=== PATIENT | female | born 1940 | race Caucasian/White ===

== ENCOUNTER 2016-08-05 05:23 | Inpatient (IN) | payer MEDICARE, OTHER ==
--- NOTE | 2016-07-27 11:21 | HISTORY & PHYSICAL EXAMINATION ---
DATE OF ADMISSION: 08/05/2016 CHIEF COMPLAINT: Pelvic pressure, a mass protruding from the vagina on coughing or sneezing. HISTORY OF PRESENT ILLNESS: The patient is a 76-year-old 2, para 2. General health is complicated by arthritis and back pain. 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 She did well postoperatively to a little over a year ago when she began to notice pressure on coughing or sneezing and then eventually she started to have a mass protruding from her vagina when she would cough, sneeze or strain. She had been followed in the office for several months. It got progressively worse. We placed her on estrogen vaginal cream several months ago and she is presently being admitted for an anterior and posterior colporrhaphy along with an insertion of a suprapubic Cysto-Cath. PAST MEDICAL HISTORY: She has 2 children in good health. ALLERGIES: No known drug allergies. SURGICAL HISTORY: [id number] she had a KIMBERLEY-BSO. She had wisdom teeth removed. She had surgery on her left wrist about a year ago. SOCIAL HISTORY: No smoking. No excessive alcohol intake. She is retired. FAMILY HISTORY: Mother at age 52 in childbirth. Father at age 57 of uncertain etiology. No brothers or sisters. REVIEW OF SYSTEMS: She does have problems with headaches. She says that they are not migraine headaches. PHYSICAL EXAMINATION: GENERAL: Well-developed, well-nourished 76-year-old white female, alert, oriented x3, cooperative, in no acute distress, appears her stated age. EYES: Conjunctivae are pink, sclerae white, no evidence of jaundice. EARS: Have normal light reflex bilaterally. NOSE: Has normal mucosa. Septum is midline. There are no polyps. THROAT: No erythema or evidence of infection. Teeth are in good state of repair. HEAD: Normocephalic, normal distribution of hair. NECK: Supple. Trachea midline. Thyroid is not enlarged. There is no adenopathy appreciated. Both carotids are of good intensity. CHEST: Clear to auscultation and percussion. No wheezes, rales or rhonchi appreciated. HEART: Regular rhythm. S1 and S2 are normal. BREASTS: Normal. ABDOMEN: Reveals a well-healed Pfannenstiel incision. PELVIC: Reveals a second-degree cystocele along with a second-degree rectocele which prolapses through the vagina on coughing or sneezing. MUSCULOSKELETAL: Reveals no calf tenderness. IMPRESSIONS OF THIS CASE: Status post removal of wisdom teeth. Status post left wrist surgery. Status post total abdominal hysterectomy and bilateral salpingo-oophorectomy. Symptomatic rectocele and cystocele. MTDD
--- NOTE | 2016-07-27 11:30 | PAT Medication Instructions ---
Service Date Jul 27, 2016. Current Home Medication List Amoxicillin & Pot Clavulanate (Augmentin 875-125 mg), 1 TAB PO BID Ascorbic Acid (Vitamin C), 1 TAB PO DAILY Atorvastatin (Lipitor), 10 MG PO QAM Calcium Carbonate-Cholecalcife (Caltrate 600+D), 1 TAB PO QAM Cholecalciferol (Vitamin D3), 1 TAB PO DAILY Cyanocobalamin (Vitamin B12 500MCG), 500 MCG PO QAM Diclofenac Sodium (Topical) (Voltaren 1% Top Gel), 1 DOSE TOP UD Estrogens, Conjugated (Premarin), 1 DOSE TOP UD Ssoawavxzxx-Yspkipbgioa-Ypytbw (Glucosamine Chondroitin M), 1 TAB PO QAM Multiple Vitamins W/ Minerals (Centrum Silver Adult 50+), 1 TAB PO QAM Multiple Vitamins W/ Minerals (Preservision Areds 2), 1 TAB PO QAM Probiotic Product (Probiotic), 1 TAB PO QAM Psyllium (Metamucil Fiber), 1 DOSE PO UD Medication Instructions For Your Scheduled Surgery - Hold the following medications as of 07/27/16: Uzfxgxpbgwj-Tpptjtqolby-Aiurzq (Glucosamine Chondroitin M), 1 TAB PO QAM - Hold the following medications the morning of surgery: Ascorbic Acid (Vitamin C), 1 TAB PO DAILY Calcium Carbonate-Cholecalcife (Caltrate 600+D), 1 TAB PO QAM Cholecalciferol (Vitamin D3), 1 TAB PO DAILY Cyanocobalamin (Vitamin B12 500MCG), 500 MCG PO QAM Diclofenac Sodium (Topical) (Voltaren 1% Top Gel), 1 DOSE TOP UD Estrogens, Conjugated (Premarin), 1 DOSE TOP UD Multiple Vitamins W/ Minerals (Centrum Silver Adult 50+), 1 TAB PO QAM Multiple Vitamins W/ Minerals (Preservision Areds 2), 1 TAB PO QAM Probiotic Product (Probiotic), 1 TAB PO QAM Psyllium (Metamucil Fiber), 1 DOSE PO UD - Take the following medications the morning of surgery with a sip of water OTHERWISE NOTHING TO EAT OR DRINK AFTER MIDNIGHT: Amoxicillin & Pot Clavulanate (Augmentin 875-125 mg), 1 TAB PO BID Atorvastatin (Lipitor), 10 MG PO QAM - Take the following medications as scheduled the night before surgery: Amoxicillin & Pot Clavulanate (Augmentin 875-125 mg), 1 TAB PO BID If you have any questions please call us at [phone] or [phone] or [phone]
[2016-07-27 11:46] LABS: BASO % 0.2 %; BASO ABS # 0.01 K/uL (0-0.2); COMPLETE YES; EOS % 0.9 %; HEMATOCRIT 40.4 % (37-47); LYMPH % 10.8 %; LYMPH ABS # 0.48 K/uL (1.2-3.4); MEAN CELL VOLUME 86.3 fL (80-100); MEAN CORPUSCULAR HEMOGLOBIN 28.8 pg (25-34); MEAN CORPUSCULAR HGB CONC 33.4 g/dl (32-36); MEAN PLATELET VOLUME 10.3 fL (7.4-10.4); MONO % 11.9 %; NEUT % 76.2 %; PLATELET COUNT 187 K/uL (130-400); RED BLOOD COUNT 4.68 M/uL (4.2-5.4); WHITE BLOOD COUNT 4.46 K/uL (4.8-10.8)
[2016-07-27 12:03] LABS: INR 1.1 (0.9-1.1); PROTHROMBIN TIME (PATIENT) 11.3 SECONDS (9.0-12.0)
[2016-07-27 12:12] LABS: BLOOD UREA NITROGEN 7 mg/dl (7-18); BUN/CREATININE RATIO 11.5 (10-20); CALCIUM 8.9 mg/dl (8.5-10.1); CARBON DIOXIDE 29 mmol/L (21-32); CHLORIDE 102 mmol/L (98-107); CREATININE 0.62 mg/dl (0.60-1.20); GLUCOSE 120 mg/dl (70-99); POTASSIUM 3.6 mmol/L (3.5-5.1); SODIUM 139 mmol/L (136-145)
--- NOTE | 2016-07-27 12:28 | DIAGNOSTIC IMAGING REPORT ---
CHEST PREADMISSION(PA/LAT) CLINICAL HISTORY: Preoperative chest COMPARISON STUDY: No previous studies for comparison. FINDINGS: The heart is mildly enlarged. There is no failure. There is no focal pulmonary consolidation. There are no pleural effusions. There is minor right basilar atelectasis. There are old right-sided rib deformities.[ IMPRESSION: No active disease in the chest. Electronically signed by: Pepe Schneider M.D. 07/27/2016 12:27 PM Dictated Date/Time: 07/27/2016 12:27 PM
[2016-07-27 16:24] VITALS: BMI 23.0
[2016-08-05] VITALS (9 sets, daily range): BP systolic 110–137; BP diastolic 69–84; PULSE 64–86; TEMP 36.3–37.1; O2SAT 93–99; Ht 165.1 cm; Wt 63.5 kg
[~2016-08-05] VITALS: Ht 165.1 cm; Wt 63.5 kg
[~2016-08-05 05:23] MED LIST: AMOX875T PO; ASCA500 PO; ATOR10TA82 PO; CALC-354 PO; CHOL1000 PO; CYAN500T13 PO; DICL1GEL12 TOP; GLUCTAB54 PO; MULT-845 PO; MULT60CA PO; PRMVC TOP; PROB1TAB16 PO; PSYL58.636 PO
[2016-08-05] MEDS ORDERED: CEFOXITIN IV 2,000 MG in DEXTROSE 5% 50ML 50 ML IV SCH (06:00)
[2016-08-05] MEDS ORDERED: LACTATED RINGER'S 1000ML 1,000 ML IV SCH (06:00)
[2016-08-05] MEDS ORDERED: LIDOCAINE HCL 2% 2 ML VIAL (20MG/ML) ONE (06:33)
[2016-08-05] MEDS ORDERED: PROPOFOL IV EMULSION 10 MG/ML 20 ML VIAL IV ONE (06:33)
[2016-08-05] MEDS ORDERED: ROCURONIUM BROMIDE 10 MG/ML 5 ML VIAL ONE (06:33)
[2016-08-05] MEDS ORDERED: FENTANYL CITRATE INJ 50 MCG/1 ML 2 ML VIAL ONE ×3 (06:34→09:53)
[2016-08-05] MEDS ORDERED: SULFANILAMIDE 15% CR 120 GM TUBE ONE (06:36)
[2016-08-05] MEDS ORDERED: LIDOCAINE/EPINEPHRINE 1% 20 ML VIAL ONE (06:37)
[2016-08-05] MEDS ORDERED: SCOPOLAMINE 1.5 MG TDSY TD ONE ×2 (06:45→06:46)
[2016-08-05] MEDS ORDERED: ATROPINE SULFATE 0.1 MG/ML 5ML SYR IV PRN (06:45)
[2016-08-05] MEDS ORDERED: FENTANYL CITRATE INJ 50 MCG/1 ML 2 ML VIAL IV PRN (06:45)
[2016-08-05] MEDS ORDERED: ONDANSETRON INJ 2 MG/ML 2 ML VIAL IV PRN ×2 (06:45→10:15)
[2016-08-05] MEDS ORDERED: EpHEDrine SULFATE INJ 50 MG/ML AMP IV PRN (06:45)
--- NOTE | 2016-08-05 07:45 | History & Physical Bridge Note ---
H&P Re-Evaluation Bridge Note: I have examined the patient, reviewed the History & Physical and in the interval since the performance of the History & Physical I have noted the following changes of clinical significance: No changes noted
[2016-08-05] MEDS ORDERED: DEXAMETHASONE SOD INJ 4 MG/ML VIAL ONE (08:11)
[2016-08-05] MEDS ORDERED: ONDANSETRON INJ 2 MG/ML 2 ML VIAL ONE (08:22)
[2016-08-05] MEDS ORDERED: EpHEDrine SULFATE 50MG/5ML SYR ONE (08:32)
[2016-08-05] MEDS ORDERED: KETOROLAC TROMETHAMINE 30 MG/ML VIAL ONE (08:42)
--- NOTE | 2016-08-05 10:08 | [facility] Post Operative Brief Note ---
Immediate Operative Summary Operative Date Aug 05, 2016. Pre-Operative Diagnosis Pelvic pressure, a mass protruding from the vagina Post-Operative Diagnosis Pelvic pressure, a mass protruding from the vagina Procedure(s) Performed anterior colporrhaphy; posterior colporrhaphy; insertion of suprapubic cystocath Surgeon Dr. Goodwin Supervisor [employer] Surgeon(s) none Estimated Blood Loss 50mL Findings second degree rectocele second degree cystocele Specimens A: vaginal tissue Complication(s) None Disposition Recovery Room / PACU
[2016-08-05] MEDS ORDERED: BISACODYL 10 MG SUPP PR PRN (10:15)
[2016-08-05] MEDS ORDERED: SENNA 8.6 MG TAB PO PRN (10:15)
[2016-08-05] MEDS ORDERED: MEPERIDINE HCL 75 MG/ML CARP IV PRN (10:15)
--- NOTE | 2016-08-05 10:20 | OPERATIVE REPORT ---
DATE OF OPERATION: 08/05/2016 PROCEDURES PERFORMED: Anterior colporrhaphy, posterior colporrhaphy, and insertion of suprapubic cystocath. INDICATIONS FOR SURGERY: Mass protruding from the vagina on coughing or sneezing. PREOPERATIVE DIAGNOSES: Second degree cystocele and third degree rectocele. PROCEDURE: Anterior colporrhaphy, posterior colporrhaphy, and an insertion of suprapubic cystocath. ANESTHESIA: General. ESTIMATED BLOOD LOSS: 50 mL. OPERATIVE FINDINGS AND PROCEDURE: The patient was brought to the OR table, correctly identified by armband and conversation. Perineum and vagina were painted with Betadine paint and draped in the usual sterile fashion. A weighted speculum was placed in the posterior vagina. The anterior vagina was grasped with an Allis in the midline, 1 cm from the urethral meatus and then the bladder was infiltrated with local with epinephrine. Incision was made a cm from the exterior urethral meatus right up to the vaginal cuff. The edges of the vagina were grasped with T clamps and dissected out laterally. Then, I used a 3-0 long absorbable suture to approximate and reduce the defect with interrupted vvwlzq-hs-dqwnr sutures. I did this in 2 layers and approximated the fascial layer. I then excised the excess vaginal mucosa. I did a suture of heavy chromic to support the bladder neck and then also did a mattress suture on the vaginal mucosa at the bladder neck to add additional support. I then approximated the vaginal edges with long acting Polysorb oqltpp-ic-xjcgm bites. I then turned my attention to the rectocele. I used the roll of sponge against the anterior repair and a right angle retractor. I then infiltrated the posterior vaginal mucosa up into the cuff. I then excised a wedge-shaped portion of the perineal skin and dissected the posterior vaginal mucosa right up to the vaginal cuff and dissected out laterally to levator ani muscles. I then did a cjzhgq-wr-nevnt suture of heavy duty Vicryl about at the level of the ischial spines and used 4 interrupted fkhtqp-qz-hsokf sutures of heavy duty Vicryl to approximate the levator ani muscles between the rectum and the posterior vagina. I then excised the excess vaginal mucosa and did a continuous interlocking suture of heavy duty Vicryl to approximate the vaginal mucosa beyond the hymenal ring. I did a deep suture to approximate the bulbocavernosus body, a second deep suture to approximate the perineal body and then a running subcuticular suture to approximate the perineal skin edges. I left a small piece of suture for drainage out the perineum and then did a rectal exam, ensuring there were no stitches through the rectum, removed the retractor and the mucosa. The vagina had good length, it was a little bit narrow, accepted about 1 finger. I packed the vaginal mucosa with iodoform packing with sulfur cream. I then drained the bladder and then refilled the bladder with about 540 mL of normal saline. I inserted the suprapubic cystocath, sewed the cystocath to the anterior abdomen, connected to gravity drainage and then proceeded to remove about 250 mL from the bladder. At this time, it should be known that the urine was clear. Hemostasis was good. The patient tolerated the procedure well and left the OR in good condition. I attest to the content of the Intraoperative Record and any orders documented therein. Any exceptio ns are noted below.
--- NOTE | 2016-08-05 11:47 | Anesthesiology Progress Note ---
Anesthesia Post Op Note Date & Time Aug 05, 2016 at 11:46 Vital Signs Pain Intensity: 0 Vital Signs Past 12 Hours Date Time Temp Pulse Resp B/P Pulse Ox O2 Delivery O2 Flow Rate FiO2 08/05/16 10:40 36.2 72 17 153/78 100 Nasal Cannula 2 08/05/16 10:30 73 17 141/81 100 Nasal Cannula 2 08/05/16 10:20 80 18 147/78 98 10 08/05/16 10:10 81 18 126/75 98 10 08/05/16 10:02 36.4 78 18 134/84 98 10 08/05/16 05:44 37.1 86 20 132/79 94 Room Air Notes Mental Status: alert / awake / arousable, participated in evaluation Pt Amnestic to Procedure: Yes Nausea / Vomiting: adequately controlled Pain: adequately controlled Airway Patency, RR, SpO2: stable & adequate BP & HR: stable & adequate Hydration State: stable & adequate Anesthetic Complications: no major complications apparent
[2016-08-05] MEDS: D5W AND LACTATED RINGERS 1,000 ML IV SCH ×2 (11:59→19:47)
[2016-08-05] MEDS ORDERED: NURSING VERBAL MED ORDER ONE (13:30)
[2016-08-05] MEDS ORDERED: DEXTROSE IV ONE (14:30)
[2016-08-05] MEDS ORDERED: LACTATED RINGERS IV ONE (14:30)
[2016-08-05] MEDS: KETOROLAC TROMETHAMINE 15 MG/ML VIAL IV. PRN ×2 (16:26→22:33)
[2016-08-06 00:30] VITALS: BP 104/62; PULSE 53; TEMP 36.8; O2SAT 95
[2016-08-06 03:05] VITALS: BP 107/65; PULSE 66; TEMP 36.8; O2SAT 98
[2016-08-06] MEDS: D5W AND LACTATED RINGERS 1,000 ML IV SCH (03:05)
[2016-08-06] MEDS: KETOROLAC TROMETHAMINE 15 MG/ML VIAL IV. PRN (05:08)
[2016-08-06 07:41] LABS: BASO % 0.1 %; BASO ABS # 0.01 K/uL (0-0.2); COMPLETE YES; EOS % 0.5 %; HEMATOCRIT 32.6 % (37-47); IG% 0.2 %; LYMPH % 12.6 %; LYMPH ABS # 1.29 K/uL (1.2-3.4); MEAN CELL VOLUME 87.9 fL (80-100); MEAN CORPUSCULAR HEMOGLOBIN 29.1 pg (25-34); MEAN CORPUSCULAR HGB CONC 33.1 g/dl (32-36); MEAN PLATELET VOLUME 10.6 fL (7.4-10.4); MONO % 8.7 %; NEUT % 77.9 %; PLATELET COUNT 200 K/uL (130-400); RED BLOOD COUNT 3.71 M/uL (4.2-5.4); WHITE BLOOD COUNT 10.27 K/uL (4.8-10.8)
[2016-08-06 08:50] VITALS: BP 112/72; PULSE 65; TEMP 36.9; O2SAT 95
--- NOTE | 2016-08-06 09:05 | Progress Note ---
Subjective Aug 06, 2016. Subjective conversation w/ patient Ambulation: ambulating normally Voiding: mosquera catheter in place Passing Gas: Yes Diet Tolerance: Regular Diet Review of Systems Constitutional: + fever Objective Vital Signs Date Time Temp Pulse Resp B/P Pulse Ox O2 Delivery O2 Flow Rate FiO2 08/06/16 03:05 36.8 66 18 107/65 98 Room Air 08/06/16 00:30 36.8 53 18 104/62 95 Room Air 08/06/16 00:30 Room Air 08/05/16 19:45 93 Room Air 08/05/16 19:45 36.8 66 18 110/69 93 Room Air 08/05/16 17:20 18 94 Room Air 08/05/16 15:30 96 Nasal Cannula 2.0 08/05/16 15:30 36.8 66 18 124/84 96 Nasal Cannula 2.0 08/05/16 14:00 36.5 64 16 135/81 96 Nasal Cannula 2.0 08/05/16 13:00 36.4 76 16 124/77 96 Nasal Cannula 2.0 08/05/16 12:00 36.5 84 16 131/78 98 Nasal Cannula 2.0 08/05/16 11:30 36.3 74 16 137/78 98 Nasal Cannula 2.0 08/05/16 11:00 99 Nasal Cannula 2.0 08/05/16 11:00 99 Nasal Cannula 2.0 08/05/16 11:00 36.5 80 16 137/84 99 Nasal Cannula 2.0 08/05/16 10:40 36.2 72 17 153/78 100 Nasal Cannula 2 08/05/16 10:30 73 17 141/81 100 Nasal Cannula 2 08/05/16 10:20 80 18 147/78 98 10 08/05/16 10:10 81 18 126/75 98 10 08/05/16 10:02 36.4 78 18 134/84 98 10 Physical Exam General Appearance: WELL-APPEARING Respiratory/Chest: lungs clear Abdomen: normal bowel sounds, non tender Extremities: no pedal edema, no calf tenderness Laboratory Results Last 24 Hours Test 08/06/16 06:52 White Blood Count 10.27 K/uL Red Blood Count 3.71 M/uL Hemoglobin 10.8 g/dL Hematocrit 32.6 % Mean Corpuscular Volume 87.9 fL Mean Corpuscular Hemoglobin 29.1 pg Mean Corpuscular Hemoglobin Concent 33.1 g/dl Platelet Count 200 K/uL Mean Platelet Volume 10.6 fL Neutrophils (%) (Auto) 77.9 % Lymphocytes (%) (Auto) 12.6 % Monocytes (%) (Auto) 8.7 % Eosinophils (%) (Auto) 0.5 % Basophils (%) (Auto) 0.1 % Neutrophils # (Auto) 8.01 K/uL Lymphocytes # (Auto) 1.29 K/uL Monocytes # (Auto) 0.89 K/uL Eosinophils # (Auto) 0.05 K/uL Basophils # (Auto) 0.01 K/uL RDW Standard Deviation 45.4 fL RDW Coefficient of Variation 14.1 % Immature Granulocyte % (Auto) 0.2 % Immature Granulocyte # (Auto) 0.02 K/uL Assessment and Plan Post-Op Day#: 1
[2016-08-06] MEDS ORDERED: NURSING VERBAL MED ORDER ONE (10:30)
--- NOTE | 2016-08-06 10:45 | Anesthesiology Progress Note ---
Anesthesia Post Op Note Date & Time Aug 06, 2016 at 10:43 Vital Signs Vital Signs Past 12 Hours Date Time Temp Pulse Resp B/P Pulse Ox O2 Delivery O2 Flow Rate FiO2 08/06/16 08:50 36.9 65 16 112/72 95 Room Air 08/06/16 08:50 Room Air 08/06/16 03:05 36.8 66 18 107/65 98 Room Air 08/06/16 00:30 36.8 53 18 104/62 95 Room Air 08/06/16 00:30 Room Air Notes Mental Status: alert / awake / arousable, participated in evaluation Pt Amnestic to Procedure: Yes Nausea / Vomiting: adequately controlled Pain: adequately controlled Airway Patency, RR, SpO2: stable & adequate BP & HR: stable & adequate Hydration State: stable & adequate Anesthetic Complications: no major complications apparent
[2016-08-06] MEDS: IBUPROFEN 600 MG TAB PO PRN (11:04)
[2016-08-06 14:50] VITALS: BP 104/70; TEMP 36.9; O2SAT 92
[2016-08-06] MEDS: MEPERIDINE HCL 50 MG/ML CARP IV PRN ×2 (16:49→21:52)
[2016-08-07] VITALS: BP 124/77; PULSE 80; TEMP 36.4
[2016-08-07] MEDS: MEPERIDINE HCL 50 MG/ML CARP IV PRN (02:02)
[2016-08-07 06:55] LABS: BASO % 0.1 %; BASO ABS # 0.02 K/uL (0-0.2); COMPLETE YES; EOS % 0.9 %; HEMATOCRIT 35.3 % (37-47); IG% 0.3 %; LYMPH % 10.4 %; LYMPH ABS # 1.45 K/uL (1.2-3.4); MEAN CELL VOLUME 87.2 fL (80-100); MEAN CORPUSCULAR HEMOGLOBIN 29.4 pg (25-34); MEAN CORPUSCULAR HGB CONC 33.7 g/dl (32-36); MEAN PLATELET VOLUME 10.6 fL (7.4-10.4); MONO % 7.4 %; NEUT % 80.9 %; PLATELET COUNT 233 K/uL (130-400); RED BLOOD COUNT 4.05 M/uL (4.2-5.4); WHITE BLOOD COUNT 13.91 K/uL (4.8-10.8)
[2016-08-07 08:45] VITALS: BP 138/81; PULSE 80; TEMP 36.8; O2SAT 93
--- NOTE | 2016-08-07 11:01 | Progress Note ---
Subjective Aug 07, 2016. Subjective conversation w/ patient Ambulation: ambulating normally Voiding: mosquera catheter in place Passing Gas: Yes Diet Tolerance: Regular Diet Lochia: Small Review of Systems Constitutional: + fever Objective Vital Signs Date Time Temp Pulse Resp B/P Pulse Ox O2 Delivery O2 Flow Rate FiO2 08/07/16 08:45 Room Air 08/07/16 08:45 36.8 80 16 138/81 93 Room Air 08/07/16 00:00 Room Air 08/07/16 00:00 36.4 80 18 124/77 08/06/16 14:50 Room Air 08/06/16 14:50 36.9 16 104/70 92 Room Air Physical Exam General Appearance: WELL-APPEARING Respiratory/Chest: lungs clear Abdomen: normal bowel sounds, non tender Extremities: no pedal edema, no calf tenderness Laboratory Results Last 24 Hours Test 08/07/16 06:25 White Blood Count 13.91 K/uL Red Blood Count 4.05 M/uL Hemoglobin 11.9 g/dL Hematocrit 35.3 % Mean Corpuscular Volume 87.2 fL Mean Corpuscular Hemoglobin 29.4 pg Mean Corpuscular Hemoglobin Concent 33.7 g/dl Platelet Count 233 K/uL Mean Platelet Volume 10.6 fL Neutrophils (%) (Auto) 80.9 % Lymphocytes (%) (Auto) 10.4 % Monocytes (%) (Auto) 7.4 % Eosinophils (%) (Auto) 0.9 % Basophils (%) (Auto) 0.1 % Neutrophils # (Auto) 11.25 K/uL Lymphocytes # (Auto) 1.45 K/uL Monocytes # (Auto) 1.03 K/uL Eosinophils # (Auto) 0.12 K/uL Basophils # (Auto) 0.02 K/uL RDW Standard Deviation 46.6 fL RDW Coefficient of Variation 14.5 % Immature Granulocyte % (Auto) 0.3 % Immature Granulocyte # (Auto) 0.04 K/uL Assessment and Plan Post-Op Day#: 2
[2016-08-07 12:00] VITALS: BP 123/73; PULSE 86; TEMP 37.4; O2SAT 92
[2016-08-07 16:10] VITALS: BP 143/83; PULSE 72; TEMP 37; O2SAT 93
[2016-08-07 20:15] VITALS: BP 136/84; PULSE 74; TEMP 37.3; O2SAT 93
[2016-08-07] MEDS: IBUPROFEN 600 MG TAB PO PRN (20:16)
[2016-08-08] VITALS (7 sets, daily range): BP systolic 120–144; BP diastolic 75–83; PULSE 72–92; TEMP 36.4–36.9; O2SAT 93–96
--- NOTE | 2016-08-08 09:59 | Progress Note ---
Subjective Aug 08, 2016. Subjective conversation w/ patient Ambulation: ambulating normally Voiding: mosquera catheter in place Passing Gas: Yes Diet Tolerance: Regular Diet Lochia: Small Review of Systems Constitutional: + fever Objective Vital Signs Date Time Temp Pulse Resp B/P Pulse Ox O2 Delivery O2 Flow Rate FiO2 08/08/16 07:30 94 Room Air 08/08/16 07:30 36.9 88 18 144/83 94 Room Air 08/08/16 04:05 36.4 75 18 140/80 96 Room Air 08/08/16 00:05 93 Room Air 08/08/16 00:05 36.6 72 18 121/80 93 Room Air 08/07/16 20:15 37.3 74 16 136/84 93 Room Air 08/07/16 16:10 93 Room Air 08/07/16 16:10 37.0 72 20 143/83 93 Room Air 08/07/16 12:00 37.4 86 18 123/73 92 Room Air Physical Exam General Appearance: WELL-APPEARING Respiratory/Chest: lungs clear Abdomen: non tender Extremities: no pedal edema, no calf tenderness Assessment and Plan Post-Op Day#: 3 Continue Routine Care: will start to clamp suprapubic catheter
[2016-08-08] MEDS: IBUPROFEN 600 MG TAB PO PRN ×2 (13:06→21:31)
[2016-08-08] MEDS: MAGNESIUM HYDROXIDE SUSP 30 ML UDC PO PRN (19:14)
[2016-08-09 03:30] VITALS: BP 137/81; PULSE 77; TEMP 36.5; O2SAT 95
[2016-08-09 07:40] VITALS: BP 138/80; PULSE 74; TEMP 36.8; O2SAT 94
[2016-08-09] MEDS: IBUPROFEN 600 MG TAB PO PRN ×2 (09:15→17:56)
--- NOTE | 2016-08-09 09:59 | Progress Note ---
Subjective Aug 09, 2016. Subjective conversation w/ patient Ambulation: ambulating normally Voiding: mosquera catheter in place Passing Gas: Yes Diet Tolerance: Regular Diet Lochia: Small Review of Systems Constitutional: + fever Objective Vital Signs Date Time Temp Pulse Resp B/P Pulse Ox O2 Delivery O2 Flow Rate FiO2 08/09/16 07:40 36.8 74 18 138/80 94 Room Air 08/09/16 07:40 94 Room Air 08/09/16 03:30 36.5 77 18 137/81 95 Room Air 08/08/16 23:55 94 Room Air 08/08/16 23:55 36.8 90 18 144/83 94 Room Air 08/08/16 19:35 36.7 89 18 120/75 93 Room Air 08/08/16 15:45 95 Room Air 08/08/16 15:45 36.9 80 18 129/80 95 Room Air 08/08/16 12:35 36.9 92 18 121/82 Room Air Physical Exam General Appearance: WELL-APPEARING Respiratory/Chest: lungs clear Abdomen: non tender Extremities: no pedal edema, no calf tenderness Assessment and Plan Post-Op Day#: 4 Continue Routine Care: voiding in small amounts with high residuals
[2016-08-09 15:55] VITALS: BP 141/85; PULSE 77; TEMP 36.9; O2SAT 94
[2016-08-09] MEDS: MAGNESIUM HYDROXIDE SUSP 30 ML UDC PO PRN (23:47)
[2016-08-09 23:50] VITALS: BP 135/79; PULSE 73; TEMP 36.4; O2SAT 94
[2016-08-10 07:30] VITALS: BP 120/76; PULSE 76; TEMP 36.8; O2SAT 95
--- NOTE | 2016-08-10 08:35 | Progress Note ---
Subjective Aug 10, 2016. Subjective conversation w/ patient Ambulation: ambulating normally Voiding: mosquera catheter in place Passing Gas: Yes Diet Tolerance: Regular Diet Lochia: Small Review of Systems Constitutional: + fever Objective Vital Signs Date Time Temp Pulse Resp B/P Pulse Ox O2 Delivery O2 Flow Rate FiO2 08/10/16 07:30 36.8 76 18 120/76 95 Room Air 08/10/16 07:30 Room Air 08/09/16 23:50 36.4 73 18 135/79 94 Room Air 08/09/16 23:50 94 Room Air 08/09/16 15:55 Room Air 08/09/16 15:55 36.9 77 18 141/85 94 Room Air Physical Exam General Appearance: WELL-APPEARING Respiratory/Chest: lungs clear Abdomen: non tender Extremities: no pedal edema, no calf tenderness Assessment and Plan Post-Op Day#: 5 Continue Routine Care: patient is voiding in small amounts with high residuals will manage supra pubic catheter at home
--- NOTE | 2016-08-10 08:37 | Discharge Instructions ---
Discharge Instructions Date of Service Aug 10, 2016. Admission Reason for Admission: 1ST Degree Cystocele, 2ND Degree Rectocele, Loss O Discharge Discharge Diagnosis / Problem: cystocele rectocele Discharge Goals Goal(s): Routine recovery after surgery Activity Recommendations Activity Limitations: as noted below ACTIVITY RECOMMENDATIONS: * Gradual return to full activity over next 2-3 weeks. * No heavy lifting over next 2-3 weeks. * Nothing in the vagina (no intercourse, tampons, or douching) for 2 months * You may walk up and down steps as necessary. * You may drive a car in 2 weeks. * Hot shower or tub bath daily. SPECIAL CARE INSTRUCTIONS: * Check temperature twice daily for one week. Report any elevation over 100.4 degrees Fahrenheit (38.0 degrees Celsius). * Call your doctor if bleeding becomes heavier than the heaviest part of your period - saturating a sanitary pad within an hour. * If you develop a red, hard, warm swollen lump on your incision or if you develop any separation of or drainage from your incision, notify your doctor. . Current Hospital Diet Patient's current hospital diet: Regular Diet Discharge Diet Recommended Diet: Regular Diet Procedures Procedures Performed: anterior colporrhaphy; posterior colporrhaphy; insertion of suprapubic cystocath Pending Studies Studies pending at discharge: no Medical Emergencies . Who to Call and When: Medical Emergencies: If at any time you feel your situation is an emergency, please call 911 immediately. . Non-Emergent Contact Non-Emergency issues call your: Appliance Repairer Call Non-Emergent contact if: temperature is above 100.5 . . "Provider Documentation" section prepared by Kvng Goodwin. VTE Core Measure Inpt VTE Proph given/why not?: Treatment not indicated
[2016-08-10 08:41] VITALS: BP 120/76; PULSE 76; TEMP 36.8; O2SAT 95
--- NOTE | 2016-08-10 09:05 | DISCHARGE SUMMARY ---
Mrs. St is a 76-year-old white female, who was admitted with symptoms of a mass protruding from her vagina on coughing or sneezing which caused pelvic pain and discomfort. She previously had an abdominal hysterectomy and had been followed in the office for several years. She has a cystocele and rectocele that is getting progressively worse and causing increasing symptoms of pelvic pain. At the time of admission, she had a third degree rectocele and a second degree cystocele. She was given Premarin vaginal cream which she used several months prior to surgery. On the day of admission, she was taken to the OR where she underwent anterior colporrhaphy, posterior colporrhaphy and insertion of a suprapubic Cystocath. Postoperatively, she did well. She remained afebrile. The vaginal packing was left in for 2 days and removed on day #2. Bleeding was minimal. We then had her attempt to void; initially she was unable to void and at the time of discharge she is voiding in relatively small amounts with high residuals of over 200 mL. She will manage the catheter at home. We did put in a consult with the home health services. She will keep track of her voiding amounts and residuals, when appropriate she will call the office and will remove the catheter. During her stay her preoperative hemoglobin was 13.5 and hematocrit 40.4. At the time of discharge, her hemoglobin was 11.9 and hematocrit 35.3.
== END 2016-08-10 10:20 | disposition home health service (06) | DRG 748 ==
LOC: ENRESERVDT → ENRESERVTM → C.ACU 05:23 → C.MS4N 05:35
PROVIDERS: ADMIT Obstetrics & Gynecology; ATTEND Obstetrics & Gynecology
PROC: 0T9B40Z Drainage of Bladder with Drainage Device, Percutaneous Endoscopic Approach (ICD-10-PCS; principal; 2016-08-05 07:00)
PROC: 0JQC0ZZ Repair Pelvic Region Subcutaneous Tissue and Fascia, Open Approach (ICD-10-PCS; principal; 2016-08-05 07:00)
DX: N81.6 Rectocele (principal); N81.10 Cystocele, unspecified

== ENCOUNTER → 2017-03-25 | Outpatient (CLI) | payer MEDICARE ==
[~2017-03-25] MED LIST changes: -AMOX875T PO; -PRMVC TOP
== END | disposition home or self-care (01) ==
LOC: C.PAPS 16:03
PROVIDERS: ATTEND Obstetrics & Gynecology
DX: Z12.4 Encounter for screening for malignant neoplasm of cervix (principal)

== ENCOUNTER 2023-09-17 05:52 | Observation (INO) ==
--- NOTE | 2023-09-06 16:13 | History & Physical Report ---
Date of Service September 06, 2023 Assessment & Plan (1) Rectocele: Plan posterior cholporraphy History of Present Illness Chief Complaint: Mass protruding from the vagina on coughing or sneezing. Primary Care Provider: PT DECLINED Patient is an 83-year-old 2 para 2 general health is complicated by arthritis and lower back disc degeneration. In 1991 she had a total abdominal hysterectomy bilateral salpingo-oophorectomy for atypical adenomatous hyperplasia. In 2016 she had an anterior and posterior colporrhaphy for a first-degree cystocele and a second-degree rectocele. Over 6 months ago she began to notice bulging in the vaginal opening. This progressed to part of the posterior vagina coming out of the vaginal opening in the morning when she would wake up. These are causing symptoms of pelvic pain and pressure and discomfort. She has been on estrogen vaginal cream for over 6 months. She is presently being scheduled for a posterior colporrhaphy for repair of a second-degree rectocele. Allergies Allergy/AdvReac Type Severity Reaction Status Date / Time oxycodone Allergy Unknown per cardio Unverified 08/03/16 09:59 note Home Medications Medication Instructions Recorded Confirmed Type ATORVASTATIN (LIPITOR) 10 mg PO QAM #0 tabs 07/27/16 History Ascorbic Acid (Vitamin C) 1 tab PO DAILY ##0 07/27/16 History CALCIUM CARBONATE-CHOLECALCIFE 1 tab PO QAM ##0 07/27/16 History (CALTRATE 600+D) CHOLECALCIFEROL (VITAMIN D3) 1 tab PO DAILY 90 days #90 tabs 07/27/16 History CYANOCOBALAMIN (VITAMIN B12 500MCG) 500 mcg PO QAM #0 tabs 07/27/16 History DICLOFENAC SODIUM (TOPICAL) 1 dose topical UD ##0 07/27/16 History (VOLTAREN 1% TOP GEL) [id number] 1 tab PO QAM ##0 07/27/16 History (GLUCOSAMINE CHONDROITIN M) MULTIPLE VITAMINS W/ MINERALS 1 tab PO QAM ##0 07/27/16 History (CENTRUM SILVER ADULT 50+) MULTIPLE VITAMINS W/ MINERALS 1 tab PO QAM ##0 07/27/16 History (PRESERVISION AREDS 2) PROBIOTIC PRODUCT (PROBIOTIC) 1 tab PO QAM ##0 07/27/16 History Psyllium (Metamucil Fiber) 1 dose PO UD ##0 07/27/16 History estradiol 0.01% (0.1 mg/gram) 1 g vaginal 2XWK 09/06/23 09/06/23 History vaginal cream Review of Systems Constitutional: as per Subjective / HPI Physical Exam Physical Exam: Patient is 83-year-old white female alert oriented x 3 cooperative in no acute distress. Neck was supple trachea was midline. There was no cervical adenopathy . Super clavicular adenopathy was not present. Heart had a regular rhythm S1 and S2 were normal. Lungs were clear to auscultation and percussion. Abdomen was soft and nontender. There was no costovertebral angle tenderness. There was a well-healed Pfannenstiel incision. Pelvic exam revealed a rectocele protruding from the vaginal opening. Examination with part of the speculum revealed good support of the bladder neck. And a second-degree rectocele starting about long-term up the posterior vagina. There was no calf tenderness. Results & Data Results & Data Diagnostic Findings Symptomatic second-degree rectocele.
--- NOTE | 2023-09-07 12:24 | PAT Medication Instructions ---
Medication Instructions Date of Service September 07, 2023 Home Medications estradiol 0.01% (0.1 mg/gram) vaginal cream 1 g vaginal 2XWK ascorbic acid (vitamin C) 500 mg tablet (Vitamin C) 500 mg PO QAM atorvastatin 10 mg tablet 10 mg PO QAM calcium carbonate 600 mg-vitamin D3 20 mcg (800 unit) chewable tablet (Caltrate 600 plus D) 1 tab PO QAM cholecalciferol (vitamin D3) 25 mcg (1,000 unit) tablet (Vitamin D3) 25 mcg PO QAM cyanocobalamin (vitamin B-12) 500 mcg tablet 500 mcg PO QAM fluticasone 250 mcg-salmeterol 50 mcg/dose blistr powdr for inhalation 1 inh inhalation BID PRN montelukast 10 mg tablet 10 mg PO QAM PRN multivitamin 1 tab PO QAM omega-3 fatty acids-vitamin E 1,000 mg capsule 1 cap PO QAM vitamins A,C,D-ulvd-rwfrah 2,148 mcg-113 mg-45 mg-17.4 mg tablet (PreserVision AREDS) 1 tab PO QAM STOP taking 2 weeks before surgery (or as soon as possible if surgery is within 2 weeks) omega-3 fatty acids-vitamin E 1,000 mg capsule 1 cap PO QAM vitamins A,C,I-qxnp-jaivnx 2,148 mcg-113 mg-45 mg-17.4 mg tablet (PreserVision AREDS) 1 tab PO QAM STOP taking 24 hours before surgery estradiol 0.01% (0.1 mg/gram) vaginal cream 1 g vaginal 2XWK DO NOT take the morning of surgery ascorbic acid (vitamin C) 500 mg tablet (Vitamin C) 500 mg PO QAM calcium carbonate 600 mg-vitamin D3 20 mcg (800 unit) chewable tablet (Caltrate 600 plus D) 1 tab PO QAM cholecalciferol (vitamin D3) 25 mcg (1,000 unit) tablet (Vitamin D3) 25 mcg PO QAM cyanocobalamin (vitamin B-12) 500 mcg tablet 500 mcg PO QAM multivitamin 1 tab PO QAM Take morning of surgery With a small sip of water, OTHERWISE NOTHING TO EAT OR DRINK AFTER MIDNIGHT: atorvastatin 10 mg tablet 10 mg PO QAM fluticasone 250 mcg-salmeterol 50 mcg/dose blistr powdr for inhalation 1 inh inhalation BID PRN montelukast 10 mg tablet 10 mg PO QAM PRN(if needed) Take evening before surgery fluticasone 250 mcg-salmeterol 50 mcg/dose blistr powdr for inhalation 1 inh inhalation BID PRN Other Notes If you have any questions please call us at [phone] or [phone] or [phone] or [phone]
--- NOTE | 2023-09-13 12:52 | Anesthesiology Consultation ---
Date of Service September 13, 2023 Assessment & Plan (1) Encounter for pre-operative examination: Chart Review Chart Review: Acceptable Risk for Surgery (pending stress test and Holter monitor (if available)) and Patient seen in Pre Admission Testing - Please attempt to get stress test/Holter monitor from [facility] (now [facility])- done around 2019 (if available) Per PAT appt on 09/13/23, no recent illness/disease exposures, illness related symptoms, or recent illness/disease positive tests. Will leave to surgeon's discretion if preop Covid testing needed Teaching & Discussion Pre-Anesthesia Teaching/Discussion Notes: Instructed NPO after midnight before surgery,except medications with 15 cc of water. Medication instructions provided according to the PAT guidelines. History Surgery Operation Date: 09/17/23 07:15 Proposed Procedures p Posterior Colporrhaphy - Kvng Goodwin MD Height/Weight Height: 5 ft 4.5 in Weight: 59.2 kg Allergies Allergy/AdvReac Type Severity Reaction Status Date / Time caffeine Allergy Mild jittery Verified 09/07/23 07:56 adhesive tape AdvReac Mild skin Verified 09/07/23 07:57 redness oxycodone AdvReac Mild sick to Unverified 09/07/23 07:56 stomach Medications Home Medications Medication Instructions Recorded Confirmed Last Taken estradiol 0.01% (0.1 mg/gram) 1 g vaginal 2XWK 09/06/23 09/06/23 Unknown vaginal cream ascorbic acid (vitamin C) 500 mg 500 mg PO QAM 09/07/23 09/07/23 Unknown tablet (Vitamin C) atorvastatin 10 mg tablet 10 mg PO QAM 09/07/23 09/07/23 Unknown calcium carbonate 600 mg-vitamin 1 tab PO QAM 09/07/23 09/07/23 Unknown D3 20 mcg (800 unit) chewable tablet (Caltrate 600 plus D) cholecalciferol (vitamin D3) 25 25 mcg PO QAM 09/07/23 09/07/23 Unknown mcg (1,000 unit) tablet (Vitamin D3) cyanocobalamin (vitamin B-12) 500 500 mcg PO QAM 09/07/23 09/07/23 Unknown mcg tablet fluticasone 250 mcg-salmeterol 50 1 inh inhalation BID PRN sob 09/07/23 09/07/23 Unknown mcg/dose blistr powdr for inhalation montelukast 10 mg tablet 10 mg PO QAM PRN allergy relief 09/07/23 09/07/23 Unknown multivitamin 1 tab PO QAM 09/07/23 09/07/23 Unknown omega-3 fatty acids-vitamin E 1 cap PO QAM 09/07/23 09/07/23 Unknown 1,000 mg capsule vitamins A,C,V-jliu-lfvlgl 2,148 1 tab PO QAM 09/07/23 09/07/23 Unknown mcg-113 mg-45 mg-17.4 mg tablet (PreserVision AREDS) Pepcid See Rx Instructions .Route .COMPLEX 09/13/23 09/13/23 Unknown Past Medical History Medical History Arthritis Environmental and seasonal allergies reason for inhaler per patient - uses occasionally GERD (gastroesophageal reflux disease) controlled and stable with Pepcid q HS Hx of melanoma of skin on leg Hyperlipidemia Irregular heart beat Patient asymptomatic - patient states extra beat noted by PCP Did have Holter monitor and stress test years ago- no issues per patient Stable and controlled Exercise / Class Metabolic Activity II 4-5 Yardwork/Stairs/Walk up hill (one flight of stairs- no chest pain or SOB ) Past Family History Family History Other No family history of adverse response to anesthesia Past Surgical History Surgical History H/O hernia repair H/O rectocele repair with bladder tack H/O wrist surgery rt/left History of cataract surgery rt/left History of colonoscopy History of postoperative nausea and vomiting History of tooth extraction Hx of hysterectomy Past Anesthesia History No Hx of Anesthesia Complications (with exception to occ dizziness and PONV ) and No Family Hx of Anesthesia Complications History of PONV No Hx of Motion Sickness, Other (occ post op vertigo ) and History of PONV ( relieved with pre treatment with anti-nausea medication ) Social History Smoking Status: Never smoker Do You Dip or Chew Tobacco: No Hx Alcohol Use: Yes Alcohol type: wine alcohol intake frequency: a few times a month substance use type: does not use Review of Systems Patient denies chest pain, shortness of breath at rest, dyspnea on exertion, cough, wheezing, palpitations. No hx of seizures, stroke, IA, apnea/snoring. No hx of blood clots or blood transfusions Physical Exam Vital Signs VITALS BP 157/86 (usually well controlled) P 78 TEMP 98.3 SP02 95% RESP 16 Constitutional no acute distress ENMT Mouth: no TMJ clicking Thyromental Distance: > or= 3.5 Finger Breadths (3.5) Mallampati Class: III Missing molar Neck + limited neck extension Respiratory normal respiratory effort; no respiratory distress Auscultation: lungs clear to auscultation bilaterally; no wheezes Cardiovascular Rate/Rhythm: regular rate and regular rhythm Heart Sounds: no murmur Vessels: no carotid bruit Musculoskeletal Spine: no pain with cervical ROM Extremities: extremities normal to inspection Psychiatric Orientation: alert Lab Results Anesthesia Preop Results Results Anesthesia Widget: PT 11.2 Seconds (9.0-12.0) 09/13/23 PTT 24 Seconds (21-31) 09/13/23 INR 1.0 (0.9-1.1) 09/13/23 Blood Type O Positive 09/13/23 Antibody Screen NEGATIVE 09/13/23 Testing Laboratory Results 09/03/23= WBC: 8.4 H/H: 13.2/40.9 PLATELETS: 209 SODIUM: 146 POTASSIUM: 3.9 CHLORIDE: 112 CO2: 29.0 BUN: 20.0 CREATININE: 0.70 GLUCOSE: 82 TSH: 1.880 Electrocardiogram Date: 09/13/23 Unusual P axis, possible ectopic atrial rhythm at 72bpm (Discussed with Dr. Epps- will attempt to get previous cardiac studies (Holter and stress test)- patient otherwise relatively healthy, good functional status with no cardiac symptoms- can proceed regardless if testing is received or not)
[2023-09-17] MEDS: LACTATED RINGER'S 1,000 ML IV SCH (06:28)
[2023-09-17] MEDS ORDERED: LIDOCAINE 2% 2 ML VIAL/AMP(20MG/ML) INFIL ONE (06:55)
[2023-09-17] MEDS ORDERED: ONDANSETRON INJ 2 MG/ML 2 ML VIAL ONE (06:55)
[2023-09-17] MEDS ORDERED: PROPOFOL IV EMULSION 10 MG/ML 20 ML VIAL IV ONE (06:55)
[2023-09-17] MEDS ORDERED: fentaNYL citrate PF 100 MCG/2 ML VIAL ONE (06:55)
[2023-09-17] MEDS ORDERED: DEXAMETHASONE SOD INJ 4 MG/ML VIAL ONE (06:55)
[2023-09-17] MEDS ORDERED: ACETAMINOPHEN 1000 MG/100 ML IV IV ONE (07:13)
--- NOTE | 2023-09-17 07:15 | History & Physical Bridge Note ---
Date of Service September 17, 2023 History & Physical Bridge Note I have examined the patient, reviewed the History & Physical and in the interval since the performance of the History & Physical I have noted the following changes of clinical significance: no changes noted
[2023-09-17] MEDS ORDERED: DROPERIDOL 5 MG/2 ML VIAL ONE (07:21)
[2023-09-17] MEDS: cefOXitin 2,000 MG in DEXTROSE 5 % MINI-B 50 ML IV SCH (07:33)
[2023-09-17] MEDS ORDERED: ROCURONIUM BROMIDE 10 MG/ML 5 ML VIAL IV ONE (08:00)
[2023-09-17] MEDS ORDERED: PHENYLEPHRINE 100MCG/ML 10ML SYR IV ONE (08:00)
[2023-09-17] MEDS ORDERED: SUGAMMADEX SODIUM 200 MG/2 ML VIAL IV ONE (08:01)
[2023-09-17] MEDS ORDERED: ePHEDrine sulfate 50 MG/ML AMP ONE (08:22)
[2023-09-17] MEDS: LIDOCAINE 1%/EPINEPHRINE 1:100,000 20 ML VIAL ONE (08:26)
[2023-09-17] MEDS: PREMARIN VAG CRM 14 APPLN/30 GM TUBE ONE (08:57)
[2023-09-17] MEDS: EPINEPHrine INJ 1 MG/ML AMP ONE (08:57)
[2023-09-17] MEDS: LIDOCAINE 1% LOCAL 20 ML VIAL ONE (08:57)
--- NOTE | 2023-09-17 09:33 | Operative Report ---
Post Operative Report Pre & Post Diagnosis Operation Date: 09/17/23 07:15 Pre-Op Diagnosis: Rectocele, Pelvic Pressure Post-Op Diagnosis: Rectocele, Pelvic Pressure I identified the patient and participated in the time-out.: Yes Procedure Operation Date: 09/17/23 07:15 Actual Procedures p Posterior Colporrhaphy(Not Applicable) - Kvng Goodwin MD Surgeon Kvng Goodwin MD Cushion Stuffer none Estimated Blood Loss 20 Findings Consistent with Post-Op Diagnosis Third-degree rectocele Specimens Posterior vaginal mucosa. Anesthesia Type General Description of Procedure Patient was brought to the OR correctly identified by armband and conversation. Patient was positioned on the operating room table. Perineum and vagina were painted with Betadine paint. A metal catheter was used to empty the bladder. The perineum was draped in usual sterile fashion. Pelvic exam revealed a large rectocele. The defect could be palpated. Repair was done by infiltrating the perineum with a combination of local and epinephrine. Excising a wedge shaped portion of the perineal skin. Grasping the opening of the vagina at the hymenal ring with a T clamp. And with blunt and sharp dissection dissected right up to the vaginal cuff. And beyond the hernial defect. The hernia sac was fixed to the posterior vaginal wall this was dissected off. And the defect was palpated. We then used interrupted [id number] sutures of heavy Vicryl. To approximate the levered her ani muscles and closed the defect. This was done with 3 interrupted sutures of heavy-duty Vicryl. This closed the hernial defect and we pushed the sac up into the abdomen as we approximated the levator ani muscles we then continued the approximation now to the hymenal ring. A deep suture of Vicryl was used approximate the bulbocavernosus muscle 2 deep sutures were used approximate the perineal body. Excess vaginal mucosa was excised. The posterior vaginal mucosa was approximated with a heavy Vicryl suture with interlocking sutures out and to be on the hymenal ring. The tops suture of Vicryl was not cut. So it could serve as a suture drain after approximating the vaginal mucosa down to beyond the hymenal ring the perineum was approximated with a running subcuticular Vicryl. A Reed catheter was inserted into the bladder. Patient tolerated the procedure well estimated blood loss was 20 mL. I attest to the content of the Intraoperative Record and any orders documented therein. Any exceptions are noted below.
--- NOTE | 2023-09-17 10:19 | Anesthesiology Progress Note ---
Date of Service September 17, 2023 Anesthesia Post Procedure Vital Signs Vital Signs: Temp Pulse Pulse Resp BP Pulse Ox O2 Del Method 09/17/23 10:15 36.5 C 77 22 132/77 92 Room Air 09/17/23 10:00 75 18 131/73 92 Room Air 09/17/23 09:50 85 20 130/75 92 Room Air 09/17/23 09:40 83 22 132/72 93 Room Air 09/17/23 09:30 89 24 129/70 94 Room Air 09/17/23 09:23 36.6 C 89 17 138/79 97 Oxymask 09/17/23 06:09 36.6 C 76 18 181/97 H 96 Room Air O2 Flow Rate 09/17/23 10:15 0 09/17/23 10:00 0 09/17/23 09:50 0 09/17/23 09:40 0 09/17/23 09:30 0 09/17/23 09:23 6 09/17/23 06:09 Transfer of Care Handoff Completed per policy Notes Mental Status: alert / awake / arousable and participated in evaluation Patient Amnestic to Procedure: Yes Nausea / Vomiting: adequately controlled Pain: adequately controlled Airway Patency, RR, SpO2: stable & adequate BP & HR: stable & adequate Hydration State: stable & adequate Anesthetic Complications: no major complications apparent and Pt Satisfied with anesthetic care
[2023-09-17] MEDS ORDERED: MEPERIDINE HCL 50 MG/ML CARP IV PRN (10:40)
[2023-09-17] MEDS ORDERED: ONDANSETRON INJ 2 MG/ML 2 ML VIAL IV PRN (10:40)
[2023-09-17] MEDS ORDERED: MAGNESIUM HYDROXIDE SUSP 30 ML UDC PO PRN (10:40)
[2023-09-17] MEDS ORDERED: SENNA 8.6 MG TAB PO PRN (10:40)
[2023-09-17] MEDS ORDERED: oxyCODONE/ACETAMINOPHEN 5mg/325mg TAB PO PRN (10:40)
[2023-09-17] MEDS ORDERED: bisacodyL 10 MG SUPP PR PRN (10:40)
[2023-09-17] MEDS ORDERED: KETOROLAC 30 MG/ML VIAL IV PRN (10:40)
[2023-09-17] MEDS: KETOROLAC TROMETHAMINE 15 MG/ML VIAL IV PRN (16:32)
[2023-09-18] MEDS: IBUPROFEN 600 MG TAB PO PRN (07:24)
[2023-09-18 07:54] LABS: Calcium 8.5 mg/dl (8.6-10.3); Creatinine Clr Calc Pharmacy 54.6 ml/min; Est GFR (African American) 93.8 ml/min; Potassium 3.5 mmol/L (3.5-5.1)
--- NOTE | 2023-09-18 09:20 | Obstetrical Progress Note ---
Date of Service September 18, 2023 Assessment & Plan Admission and Anticipated Discharge Date Admission Date: September 17, 2023 Subjective abdomen soft and non tender no calf tenderness not out of bed vaginal bleeding scant pain is not well controlled Results & Data Vital Signs (Past 12 Hours) Vital Signs Temp Pulse Resp BP Pulse Ox O2 Del Method 09/18/23 05:00 75 16 132/64 93 Room Air 09/18/23 00:35 36.7 C 70 16 133/67 95 Room Air
[2023-09-18 10:11] LABS: Hematocrit (blood only) 35.5 % (37.0-47.0); Hemoglobin 11.9 g/dl (12.0-16.0)
[2023-09-19 07:20] LABS: BUN Creatinine Ratio 22.4 (10-20); Calcium 8.4 mg/dl (8.6-10.3); Creatinine Clr Calc Pharmacy 61.2 ml/min; Est GFR (African American) 97.4 ml/min; Potassium 3.8 mmol/L (3.5-5.1)
--- NOTE | 2023-09-19 09:00 | Obstetrical Progress Note ---
Date of Service September 19, 2023 Assessment & Plan Admission and Anticipated Discharge Date Admission Date: September 18, 2023 Subjective abdomen soft and non tender urine out put good no calf tenderness vaginal packing removed post operative hgb 11.9 Results & Data Vital Signs (Past 12 Hours) Vital Signs Temp Pulse Resp BP Pulse Ox O2 Del Method 09/19/23 08:00 36.4 C L 87 16 149/88 H 93 Room Air 09/19/23 03:32 36.7 C 79 18 142/97 H 94 Room Air 09/19/23 01:04 36.6 C 75 16 148/82 H 94 Room Air
--- NOTE | 2023-09-19 09:06 | Discharge Summary ---
Date of Service September 19, 2023 Admission HPI Per Admitting Provider Patient is an 83-year-old 2 para 2 general health is complicated by arthritis and lower back disc degeneration. In 1991 she had a total abdominal hysterectomy bilateral salpingo-oophorectomy for atypical adenomatous hyperplasia. In 2016 she had an anterior and posterior colporrhaphy for a first-degree cystocele and a second-degree rectocele. Over 6 months ago she began to notice bulging in the vaginal opening. This progressed to part of the posterior vagina coming out of the vaginal opening in the morning when she would wake up. These are causing symptoms of pelvic pain and pressure and discomfort. She has been on estrogen vaginal cream for over 6 months. She is presently being scheduled for a posterior colporrhaphy for repair of a second-degree rectocele. Patient had an uneventful postoperative course. She was kept in the hospital for pain control. The day of her discharge vaginal packing was removed. Reed catheter was removed. Surgical procedure had gone well with minimal bleeding. Postoperative hemoglobin was 11.9. Given the usual instructions to call if she had a temp over 100. Or any heavy bleeding. Instructed to return to the office in 6 weeks for checkup. Discharge Data Procedures Performed Operation Date: 09/17/23 07:15 Actual Procedures p Posterior Colporrhaphy(Not Applicable) - Kvng Goodwin MD
== END 2023-09-19 12:09 | disposition home or self-care (01) | DRG 748 ==
LOC: ASU 05:52 → 4E1 05:52
PROC: M.APREP (2023-09-17 07:15)